=== PATIENT | male | born 1995 | race Caucasian/White ===

== ENCOUNTER 2018-09-18 17:58 | Emergency (ER) | payer BC, MEDICARE ==
[~2018-09-18] VITALS: Ht 182.9 cm; Wt 94.6 kg
[2018-09-18 18:04] VITALS: BP 149/86
--- NOTE | 2018-09-18 18:17 | NUR ---
PATIENT PRESENTS TO ED WITH THROAT PAIN X1 WEEK. PT STATES HE ALSO HAS A HEADACHE AND BODYACHES. DENIES N/V/D; SKIN IS PINK/WARM/DRY; AAOX4 WITH EVEN AND STEADY GAIT; LUNGS CLEAR BL; HR EVEN AND REGULAR; PT DENIES ANY FEVER, CP, SOB, OR COUGH AT THIS TIME; VSS; PATIENT POSITIONED FOR COMFORT; HOB ELEVATED; BEDRAILS UP X2; BED DOWN. ER MD MADE AWARE OF PT STATUS.
--- NOTE | 2018-09-18 19:05 | NUR ---
REPORT GIVEN TO CARIE GROVES FOR CONTINUATION OF CARE. PATIENT STABLE AT THIS TIME.
--- NOTE | 2018-09-18 19:05 | NUR ---
ASSUMED CARE OF PT AT THIS TIME. PT AWAITS MD DISPOSITION. NICK. ORTIZ. WILL CONTINUE TO MONITOR.
[2018-09-18 20:05] VITALS: BP 138/84
--- NOTE | 2018-09-18 20:05 | NUR ---
Patient discharged with v/s stable. Written and verbal after care instructions given and explained. Patient alert, oriented and verbalized understanding of instructions. Carried with steady gait. All questions addressed prior to discharge. ID band removed. Patient advised to follow up with PMD. Rx of MOTRIN AND PREDNISONE given. Patient educated on indication of medication including possible reaction and side effects. Opportunity to ask questions provided and answered.
== END 2018-09-18 20:05 | disposition home or self-care (01) ==
LOC: MED 17:58
DX: J02.8 Acute pharyngitis due to other specified organisms (principal); B97.89 Other viral agents as the cause of diseases classified elsewhere; B34.9 Viral infection, unspecified
CPT/HCPCS: 87081; 99283

== ENCOUNTER 2018-11-29 18:19 | Emergency (ER) | payer SELFPAY ==
[~2018-11-29] VITALS: Ht 180.3 cm; Wt 96.6 kg
[2018-11-29 18:51] VITALS: BP 125/67
--- NOTE | 2018-11-29 18:58 | NUR ---
VSS, PATIENT AMBULATED TO THE LOBBY, NO SIGNS OF DISTRESS.
--- NOTE | 2018-11-29 19:30 | NUR ---
PT PRESENTS TO ED WITH PRODUCTIVE COUGH AND GENERALIZED BODY ACHES X3 DAYS. AFEBRILE. LLLOBE EXPIRATORY WHEEZING. STATES EXPECTORATING YELLOW PHLEGM. C/O GENERALIZED BODY ACEHS 03/16. AFEBRILE. TREATING PAIN AT HOME WITH TYELENOL WITHOUT RELIEF FROM PAIN. ER MD AWARE. CONTINUE TO MONITOR.
--- NOTE | 2018-11-29 19:30 | NUR ---
PT AMBULATED TO BED 10. ACCOMPANIED BY FATHER.
[2018-11-29 20:14] VITALS: BP 125/67
--- NOTE | 2018-11-29 20:14 | NUR ---
Patient discharged with v/s stable. Written and verbal after care instructions given and explained. Patient alert, oriented and verbalized understanding of instructions. Ambulatory with steady gait. All questions addressed prior to discharge. ID band removed. Patient advised to follow up with PMD. Rx of Promethazine DM, Flonase 50mcg/actuation and Ibuprofen 800mg given. Patient educated on indication of medication including possible reaction and side effects. Opportunity to ask questions provided and answered.
== END 2018-11-29 20:14 | disposition home or self-care (01) ==
LOC: MED 18:19
DX: B34.9 Viral infection, unspecified (principal); Z88.0 Allergy status to penicillin
CPT/HCPCS: 99283